=== PATIENT | female | born 1950 | race Caucasian/White ===

== ENCOUNTER 2024-09-22 17:47 | Observation (INO) | payer MEDICARE, SELFPAY ==
--- NOTE | 2024-09-22 12:49 | ED.GENMED ---
ED Provider Triage
<Maya Fisher NP - Last Filed: 09/22/24 12:56>
-
Patient seen by provider in Triage?: Seen in Triage
Attestation: A medical screening examination has been initiated by a qualified medical provider. Based on the assessment performed at this time, it has been determined that an emergent medical condition may exist and the patient has been informed
that further medical evaluation and possible additional diagnostic testing may be needed.
HPI: 74-year-old female with history of essential tremors, PFO, from [facility] presents with her 's caregiver who states she called last night, there was no answer, they found her naked on the ground in the in the
bathroom. Typically is normal mental status, caregiver saw her last week and she was 'fine.' She is confused now, unsure how long she was laying on the floor, mucous membranes are very dry. She denies pain anywhere. Denies CP, SOB, abdominal
pain.
Patient states she heard the phone ring but she could not get to the phone because 'I could not stand up,'
GENERAL: Alert , in no apparent distress
EYE: No visual abnormalities.
NECK: Trachea midline
ENT: No visible abnormalities.
LUNGS: No acute respiratory distress
NEUROLOGICAL: Alert and oriented
SKIN: Skin intact. No visible changes.
MUSCULOSKELETAL: Moving extremities normally
PSYCH: Normal and appropriate interaction.
This is a medical evaluation conducted in person to initiate diagnostic evaluation and provide initial therapeutics. Please see further documentation by the treating clinician.
History of Present Illness
<Maya Fisher NP - Last Filed: 09/22/24 12:56>
General
Chief Complaint: Weakness
Time Seen by Provider: 09/22/24 14:54
<Leonid Donahue MD - Last Filed: 09/22/24 19:47>
General
Source: patient
Exam Limitations: none
Nursing documentation reviewed up to this point in time: agreed with
History of Present Illness
History of Present Illness:
Patient presents to ED from [facility], where she was found to be lying in her room, naked, by staff member this morning. Patient upon arrival states that she feels very dehydrated and has had lack of appetite over the past 2 days, and has been
feeling really weak. Patient states that she was unable to climb onto her bed last night, secondary to generalized weakness. Denies headache. Denies neck pain. Denies blurred vision. Denies loss of sensation or weakness. Denies difficulty with
speech. Patient feels very thirsty.
Review of Systems
<Leonid Donahue MD - Last Filed: 09/22/24 19:47>
Review of Systems
Allergies reviewed?: Yes
All Other Systems: ROS reviewed and negative except as documented in HPI and ROS
Constitutional: Reports no symptoms
EENT: Reports no symptoms
Respiratory: Reports no symptoms
Cardiac: Reports no symptoms
ABD/GI: Reports no symptoms
Musculoskeletal: Reports no symptoms
Skin: Reports no symptoms
Neurological: Reports weakness; Denies dizzy or headache
Phy Exam
<Leonid Donahue MD - Last Filed: 09/22/24 19:47>
Physical Exam
Physical Exam:
Physical Exam
General: mild distress, not acutely ill. afebrile. weak appearing
Head: nc/at. eomi
Neck: supple. normal range of motion.
Heart: s1/s2 regular rate and rhythm, no murmur.
Lungs: no acute respiratory distress. clear bilaterally
Abdomen: normal bowel sounds. not tender.
Neuro: alert and oriented x 3. no focal neurological deficits
Skin: no rash. dry mucosa noted
Psychiatric: well kept. interactive and cooperative
Extremities: no edema. no calf tenderness.
Course
<Maya Fisher SPD TECH - Last Filed: 09/22/24 12:56>
Orders/Labs/Results
Orders:
Orders
09/22/24 12:53
0.9% Sodium Chloride 1000 ml [Nss] 1,000 ml IV BOLUS
09/22/24 12:55
Urinalysis Reflex To Culture Urgent
09/22/24 13:08
CPK [Creatine Phosphokinase] Urgent
Complete Blood Count/With Diff Urgent
Comprehensive Metabolic Panel Urgent
09/22/24 Dinner
Regular
At Your Request: Full Participation
Does patient need a safe tray?: No
09/22/24 15:18
CT Head W/o Iv Contrast Urgent
Comment:
Reason For Exam: mental status change with fall
09/22/24 15:22
COVID-19 Antigen Urgent
Source: Nasal Swab
Influenza A+B Rapid Molecular Urgent
JACKLYN Source: Nasal Swab
Specimen Description:
09/22/24 17:38
Admit/Transfer Patient As Directed
Co-Sign Provider:
Level of Care: Observation services
Assign to:: Medical/Surgical
Physician / Group: kwasi
Diagnosis: covid, rhabdo
09/22/24 17:39
Code Status As Directed
Resuscitation Status: Full Code
PRN Pain Medication Management As Directed
May give lesser potent ordered pain med per pt: Yes
preference::
Protocol:: Medication orders for pain may be administered in a
manner that supports deferring to patient preference
when the pt is:
- Requesting an ordered lesser potent pain medication.
Least to most potent pain medications are defined
as: acetaminophen < NSAID < tramadol < opioids
(morphine, oxycodone, hydromorphone).
- Requesting a lesser dose of the same medication IF
ORDERED.
- Requesting a less intrusive route of administration
if both routes are prescribed by the provider (PO <
IV).
09/22/24 17:44
Potassium Chloride [KCl] 40 meq PO NOW STA
09/22/24 17:51
Acetaminophen [Tylenol] 650 mg PO Q4HPRN PRN
09/22/24 17:51
Activity As Directed
Activity Level: As Tolerated
Vital Signs As Directed
Frequency: Per unit guidelines
Ot Eval And Treat Routine
Pt Eval And Treat Routine
Activity Level: As Tolerated
DX Deep Vein Thrombosis Video Routine
09/22/24 18:00
omega-3 fatty acids 1,000 mg PO 5/D
09/22/24 20:00
Heparin 5,000 units SC Q12
Propranolol [Inderal] 20 mg PO BID
09/22/24 22:00
Melatonin 10 mg PO HS
09/23/24 06:00
Complete Blood Count/With Diff IN AM
Comprehensive Metabolic Panel IN AM
09/23/24 08:00
Ascorbic Acid [Vitamin C] 500 mg PO DAILY
Calcium Polycarbophil [Fibercon] 625 mg PO DAILY
Multivitamin [Theragran] 1 tablet PO DAILY
vibegron [Gemtesa] 75 mg PO DAILY
Abnormal Lab Results
09/22/24 09/22/24
13:08 15:22
MCV 74.4 L fL
(81.0-99.0)
MCH 24.5 L pg
(27.0-31.0)
MCHC 32.9 L g/dL
(33.0-37.0)
RDW 15.4 H %
(11.5-14.5)
MPV 10.8 H fL
(7.4-10.4)
Absolute Lymphs (auto) 0.5 L 10^3/uL
(1.2-3.4)
Absolute Monos (auto) 0.8 H 10^3/uL
(0.1-0.6)
Neutrophils % 81.7 H %
(42.2-75.2)
Lymphocytes % 6.6 L %
(20.5-51.1)
Monocytes % 11.2 H %
(1.7-9.3)
Potassium 3.4 L mmol/L
(3.5-5.1)
Chloride 97 L mmol/L
(98-107)
Carbon Dioxide 32 H mmol/L
(22-30)
BUN 20 H mg/dl
(7-17)
Glucose 110 H mg/dl
(70-99)
AST 52 H U/L
(14-36)
Creatine Kinase 966 H U/L
(30-135)
SARS-CoV-2 Antigen Positive A
(Negative)
09/22/24 13:08
09/22/24 13:08
Vital Signs
Initial and Last Documented VS:
Initial Vital Signs
Temp Pulse Resp BP Pulse Ox
97.9 F 85 17 133/86 98
09/22/24 12:50 09/22/24 12:50 09/22/24 12:50 09/22/24 12:50 09/22/24 12:50
Last Documented Vital Signs
Temp Pulse Resp BP Pulse Ox
99.3 F 79 22 154/81 97
09/22/24 17:52 09/22/24 17:52 09/22/24 17:52 09/22/24 17:52 09/22/24 17:57
<Leonid Donahue MD - Last Filed: 09/22/24 19:47>
Orders/Labs/Results
Orders:
Orders
09/22/24 12:53
0.9% Sodium Chloride 1000 ml [Nss] 1,000 ml IV BOLUS
09/22/24 12:55
Urinalysis Reflex To Culture Urgent
09/22/24 13:08
CPK [Creatine Phosphokinase] Urgent
Complete Blood Count/With Diff Urgent
Comprehensive Metabolic Panel Urgent
09/22/24 Dinner
Regular
At Your Request: Full Participation
Does patient need a safe tray?: No
09/22/24 15:18
CT Head W/o Iv Contrast Urgent
Comment:
Reason For Exam: mental status change with fall
09/22/24 15:22
COVID-19 Antigen Urgent
Source: Nasal Swab
Influenza A+B Rapid Molecular Urgent
JACKLYN Source: Nasal Swab
Specimen Description:
09/22/24 17:38
Admit/Transfer Patient As Directed
Co-Sign Provider:
Level of Care: Observation services
Assign to:: Medical/Surgical
Physician / Group: kwasi
Diagnosis: covid, rhabdo
09/22/24 17:39
Code Status As Directed
Resuscitation Status: Full Code
PRN Pain Medication Management As Directed
May give lesser potent ordered pain med per pt: Yes
preference::
Protocol:: Medication orders for pain may be administered in a
manner that supports deferring to patient preference
when the pt is:
- Requesting an ordered lesser potent pain medication.
Least to most potent pain medications are defined
as: acetaminophen < NSAID < tramadol < opioids
(morphine, oxycodone, hydromorphone).
- Requesting a lesser dose of the same medication IF
ORDERED.
- Requesting a less intrusive route of administration
if both routes are prescribed by the provider (PO <
IV).
09/22/24 17:44
Potassium Chloride [KCl] 40 meq PO NOW STA
09/22/24 17:51
Acetaminophen [Tylenol] 650 mg PO Q4HPRN PRN
09/22/24 17:51
Activity As Directed
Activity Level: As Tolerated
Vital Signs As Directed
Frequency: Per unit guidelines
Ot Eval And Treat Routine
Pt Eval And Treat Routine
Activity Level: As Tolerated
DX Deep Vein Thrombosis Video Routine
09/22/24 18:00
omega-3 fatty acids 1,000 mg PO 5/D
09/22/24 20:00
Heparin 5,000 units SC Q12
Propranolol [Inderal] 20 mg PO BID
09/22/24 22:00
Melatonin 10 mg PO HS
09/23/24 06:00
Complete Blood Count/With Diff IN AM
Comprehensive Metabolic Panel IN AM
09/23/24 08:00
Ascorbic Acid [Vitamin C] 500 mg PO DAILY
Calcium Polycarbophil [Fibercon] 625 mg PO DAILY
Multivitamin [Theragran] 1 tablet PO DAILY
vibegron [Gemtesa] 75 mg PO DAILY
Abnormal Lab Results
09/22/24 09/22/24
13:08 15:22
MCV 74.4 L fL
(81.0-99.0)
MCH 24.5 L pg
(27.0-31.0)
MCHC 32.9 L g/dL
(33.0-37.0)
RDW 15.4 H %
(11.5-14.5)
MPV 10.8 H fL
(7.4-10.4)
Absolute Lymphs (auto) 0.5 L 10^3/uL
(1.2-3.4)
Absolute Monos (auto) 0.8 H 10^3/uL
(0.1-0.6)
Neutrophils % 81.7 H %
(42.2-75.2)
Lymphocytes % 6.6 L %
(20.5-51.1)
Monocytes % 11.2 H %
(1.7-9.3)
Potassium 3.4 L mmol/L
(3.5-5.1)
Chloride 97 L mmol/L
(98-107)
Carbon Dioxide 32 H mmol/L
(22-30)
BUN 20 H mg/dl
(7-17)
Glucose 110 H mg/dl
(70-99)
AST 52 H U/L
(14-36)
Creatine Kinase 966 H U/L
(30-135)
SARS-CoV-2 Antigen Positive A
(Negative)
09/22/24 13:08
09/22/24 13:08
Vital Signs
Initial and Last Documented VS:
Initial Vital Signs
Temp Pulse Resp BP Pulse Ox
97.9 F 85 17 133/86 98
09/22/24 12:50 09/22/24 12:50 09/22/24 12:50 09/22/24 12:50 09/22/24 12:50
Last Documented Vital Signs
Temp Pulse Resp BP Pulse Ox
99.3 F 79 22 154/81 97
09/22/24 17:52 09/22/24 17:52 09/22/24 17:52 09/22/24 17:52 09/22/24 17:57
<Leonid Donahue MD - Last Filed: 09/22/24 19:47>
MDM/Problems Addressed
MDM/Problems Addressed:
Patient required significant support, when ambulating to restroom via wheelchair. History and exam consistent with likely significant dehydration from current COVID-19 infection. Patient will be admitted for continued IV hydration and evaluation.
<Leonid Donahue MD - Last Filed: 09/22/24 19:47>
*Critical Care Note
Total Time (30-74mins, 75-104mins- exclusive of procedures): Not Applicable
ED Attending Note
<Maya Fisher NP - Last Filed: 09/22/24 12:56>
-
Portions of this chart may have been created with voice recognition software.� Occasional wrong word or��sound alike� substitutions may have occurred due to the inherent limitations of voice recognition software.
Discharge Plan
Departure
Patient Disposition: Admit
Date of Disposition: 09/22/24
Time of Disposition: 16:55
Admit to: Telemetry
Presentation/result/management discussed w/ accepting MD/DO: Hospitalist
Discharge Problem:
COVID-19, Dehydration, Generalized weakness
Interventions
Interventions:
*Risk Screen - Suicide Last Done: 09/22/24 12:55
*General Assessment Last Done: 09/22/24 14:26
*Neglect/Abuse Screening Last Done: 09/22/24 14:34
*ED COVID-19 Vaccine History Last Done: 09/22/24 14:26
ED- Cardiac Assessment Last Done: 09/22/24 14:27
ED- Neurological Assessment Last Done: 09/22/24 14:27
ED- Pulmonary Assessment Last Done: 09/22/24 14:27
[2024-09-22 12:50] VITALS: BP 133/86
[2024-09-22 13:25] LABS: % Basophils 0.1 % (0-2); % Immature Granulocytes 0.4 % (0-0.5); % Lymphocytes 6.6 % (20.5-51.1); % Monocytes 11.2 % (1.7-9.3); % Neutrophils 81.7 % (42.2-75.2); Absolute Lymphocytes 0.5 10^3/uL (1.2-3.4); Absolute Monocytes 0.8 10^3/uL (0.1-0.6); Absolute Neutrophils 5.6 10^3/uL (1.4-6.5); Hematocrit 39.8 % (37.0-47.0); Hemoglobin 13.1 g/dL (12.0-16.0); Mean Corp Hgb Conc. 32.9 g/dL (33.0-37.0); Mean Corpuscular Hgb 24.5 pg (27.0-31.0); Mean Corpuscular Volume 74.4 fL (81.0-99.0); Mean Platelet Volume 10.8 fL (7.4-10.4); Nucleated Red Blood Cells % 0 %; Platelet Count 185 10^3/uL (130-400); Red Blood Cell Count 5.35 10^6/uL (4.20-5.40); Red Cell Dist. Width 15.4 % (11.5-14.5); White Blood Cell Count 6.8 10^3/uL (4.8-10.8)
[2024-09-22 13:42] LABS: ALT (SGPT) 27 U/L (0-35); AST (SGOT) 52 U/L (14-36); Albumin 4.7 g/dl (3.5-5.0); Alkaline Phosphatase 49 U/L (38-126); Blood Urea Nitrogen 20 mg/dl (7-17); Calcium 9.4 mg/dl (8.4-10.2); Carbon Dioxide 32 mmol/L (22-30); Chloride 97 mmol/L (98-107); Creatine Phosphokinase 966 U/L (30-135); Glucose 110 mg/dl (70-99); Potassium 3.4 mmol/L (3.5-5.1); Sodium 138 mmol/L (135-145); Total Bilirubin 0.4 mg/dl (0.2-1.3); Total Protein 7.5 g/dl (6.3-8.2); eGFR > 60.00
[2024-09-22 13:51] VITALS: BP 123/59
[2024-09-22] MEDS: NSS 1000 IV (14:32)
[2024-09-22 15:45] LABS: COVID-19 Antigen Positive (Negative)
[2024-09-22 16:33] VITALS: BP 162/83
--- NOTE | 2024-09-22 17:43 | HPS.HSE ---
Family Physician
-
Family Physician: MARLA Maldonado
Chief Complaint
-
weakness
History of Present Illness
74-year-old female past medical history of essential tremors, PFO, presenting from [facility] with her 's caregiver who states that last night there was no answer and they found her naked on the ground in the bathroom. Typically no mental
status she was fine for the past week. He is confused now unclear how long she was lying on the floor. Mucous membranes dry. No chest pain or shortness of breath abdominal pain. Patient could not get to the phone because she could not stand up.
She has some sniffles and her throat is dry. Denies cough. Denies shortness of breath. Denies fevers or chills. Denies nausea vomiting or diarrhea.
She lives in independent living and [facility].
Denies smoking or alcohol use
Medical History
Past Medical History
Past Medical History: Reports Other (essential tremors, PFO)
Past Surgical History: Reports None
Social History
Tobacco: Non-smoker
Alcohol: None
Drug: None
Family History
Family History: Not pertinent
Allergies / Home Medications
Allergies reflects when Allergies were last updated in [employer].
Home Medications with original date entered in [employer]
Allergy/Medication List:
Allergies
Allergy/AdvReac Type Severity Reaction Status Date / Time
No Known Allergies Allergy Unverified 09/22/24 12:53
Home Medications
Thyroen 1 cap PO DAILY 09/22/24
ascorbate calcium (vitamin C) 814 mg/gram oral powder (Vitamin C (ascorbate calcium)) 0 mg PO DAILY 09/22/24
calcium polycarbophil 625 mg tablet (FiberCon) 625 mg PO DAILY 09/22/24
melatonin 10 mg tablet 10 mg PO HS 09/22/24
multivitamin with mineral-herbal no.315 capsule (Adrenal Viscose Cellar Charge Hand capsule) 1 cap PO DAILY 09/22/24
omega-3 fatty acids 1,000 mg PO 5/D 09/22/24
prasterone (dhea) 25 mg capsule 25 mg PO DAILY 09/22/24
propranolol 10 mg tablet 20 mg PO BID 09/22/24
therapeutic multivitamin 1 tab PO DAILY 09/22/24
vibegron 75 mg tablet (Gemtesa) 75 mg PO DAILY 09/22/24
Review of Systems
-
History Source: Patient
A 12 point ROS was completed and negative except as noted: Yes
Constitutional: Reports No Symptoms
EENT: Reports No Symptoms
Respiratory: Reports No Symptoms
Cardiac: Reports No Symptoms
Abdomen/GI: Reports No Symptoms
: Reports No Symptoms
Musculoskeletal: Reports No Symptoms
Skin: Reports No Symptoms
Neurological: Reports No Symptoms
Endocrine: Reports No Symptoms
Hematologic/Lymphatic: Reports No Symptoms
Psych: Reports No Symptoms
Physical Exam
Vital Signs
Vital Signs
Temp Pulse Resp BP Pulse Ox
97.9 F 88 16 162/83 98
09/22/24 12:50 09/22/24 16:33 09/22/24 16:33 09/22/24 16:33 09/22/24 16:33
Physical Exam
General: Well Developed, Well Nourished and No Apparent Distress
HEENT: NormoCephalic, Moist mucous membranes and Atraumatic
Respiratory: Clear
Cardiac: S1/S2 and Regular Rhythm; No Murmur or Rub
GI: Soft, Non Tender, Non Distended and Normal Bowel Sounds; No Organomegaly
Rectal: Deferred by Provider
Musculoskeletal: No Clubbing, No Cyanosis and No Edema
Skin: No Rash
Neuro: Nonfocal/grossly intact
Laboratory Results
-
09/22/24 13:08
09/22/24 13:08
Laboratory Results
Total Bilirubin 0.4 mg/dl (0.2-1.3) 09/22/24 13:08
AST 52 U/L (14-36) H 09/22/24 13:08
ALT 27 U/L (0-35) 09/22/24 13:08
Alkaline Phosphatase 49 U/L (38-126) 09/22/24 13:08
Data Reviewed
-
Lab Data: Labs Reviewed by me
Old Records: Reviewed
Impression/Plan
-
IMPRESSION:
PLAN:
# Ambulatory dysfunction/weakness secondary to COVID infection
-Patient not short of breath or hypoxic
-No treatment
# Mild rhabdo
-Creatinine kinase of 960
-IV fluids
# Hypokalemia
-Replete potassium
Essential tremor
PFO
Full code
DVT prophylaxis�heparin
DNR/DNI
[2024-09-22 17:52] VITALS: BP 154/81
[2024-09-22] MEDS: KCL 40 MEQ PO (18:04)
[2024-09-22 22:42] VITALS: BP 145/89
[2024-09-22 22:43] VITALS: BMI 19.8
[2024-09-23 00:14] LABS: Glucose - Point of Care 113 mg/dl (70-99)
[2024-09-23] MEDS: INDERAL 20 MG PO ×3 (02:22→21:01)
[2024-09-23] MEDS: HEPARIN 5000 UNITS SC ×3 (02:22→21:02)
--- NOTE | 2024-09-23 04:50 | PTCARENOTE ---
Pt transported from ED via stretcher. She was awake, oriented x3. Pt was agitated and anxious about her 's care, but cooperative with care. Pt oriented to room. Callbell within reach.
[2024-09-23 07:25] LABS: % Basophils 0.4 % (0-2); % Immature Granulocytes 0.4 % (0-0.5); % Lymphocytes 21.6 % (20.5-51.1); % Monocytes 12.8 % (1.7-9.3); % Neutrophils 64.8 % (42.2-75.2); Absolute Monocytes 0.6 10^3/uL (0.1-0.6); Absolute Neutrophils 2.9 10^3/uL (1.4-6.5); Hematocrit 35.7 % (37.0-47.0); Hemoglobin 11.7 g/dL (12.0-16.0); Mean Corp Hgb Conc. 32.8 g/dL (33.0-37.0); Mean Corpuscular Hgb 24.2 pg (27.0-31.0); Mean Corpuscular Volume 73.8 fL (81.0-99.0); Mean Platelet Volume 10.1 fL (7.4-10.4); Nucleated Red Blood Cells % 0 %; Platelet Count 153 10^3/uL (130-400); Red Blood Cell Count 4.84 10^6/uL (4.20-5.40); Red Cell Dist. Width 15.3 % (11.5-14.5); White Blood Cell Count 4.5 10^3/uL (4.8-10.8)
[2024-09-23 07:30] VITALS: BP 133/75
[2024-09-23 07:42] LABS: ALT (SGPT) 26 U/L (0-35); AST (SGOT) 51 U/L (14-36); Albumin 3.7 g/dl (3.5-5.0); Alkaline Phosphatase 45 U/L (38-126); Blood Urea Nitrogen 21 mg/dl (7-17); Calcium 8.8 mg/dl (8.4-10.2); Carbon Dioxide 27 mmol/L (22-30); Chloride 101 mmol/L (98-107); Estimated Creatinine Clearance 68 ml/min; Glucose 96 mg/dl (70-99); Potassium 3.7 mmol/L (3.5-5.1); Sodium 137 mmol/L (135-145); Total Bilirubin 0.2 mg/dl (0.2-1.3); Total Protein 6.4 g/dl (6.3-8.2); eGFR > 60.00
[2024-09-23] MEDS: VITAMIN C 500 MG PO (08:53)
[2024-09-23] MEDS: FIBERCON 625 MG PO (08:53)
[2024-09-23] MEDS: NSS 500 IV (08:57)
[2024-09-23] MEDS: THERAGRAN 1 TABLET PO (08:57)
--- NOTE | 2024-09-23 10:25 | CM ---
Reviewed the chart notes and spoke with the patient. Patient admitted under observational status. NIYA provided and explained. The patient had no questions with regards to the letter.
The patient resides with her spouse in independent living at [facility]. Patient reports no DME/VN/SNF in the past. 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 She has an aide for him for four hours on Tuesdays. Spouse goes to [facility]
care facility Saturday and Saturday. The patient confirmed her pharmacy of choice is the [facility]. The patient anticipates being discharged to home with no additional needs. CM continues to be available to patient/family and is
monitoring medical plan for needs at discharge.
Plan: Discharge to home when medically stable. No needs anticipated at this time.
--- NOTE | 2024-09-23 11:16 | W.PN.HOSP.TC ---
Today's Communication/Plan
-
repeat CPK
PT/OT
IVF 500cc additional
plan for tentative dc later today or tomm
Assessment / Plan
Assessment / Plan
General: cachetic, and No Apparent Distress, sitting in chair, watching tv
HEENT: NormoCephalic, Moist mucous membranes and Atraumatic
Respiratory: Clear
Cardiac: S1/S2 and Regular Rhythm;
GI: Soft, Non Tender, Non Distended and Normal Bowel Sounds; No Organomegaly
Rectal: Deferred by Provider
Musculoskeletal: No Clubbing, No Cyanosis and No Edema
Skin: No Rash
Neuro: Nonfocal/grossly intact
# Ambulatory dysfunction/weakness secondary to COVID infection
-Patient not short of breath or hypoxic
-No treatment
-Symptomatic management. Tylenol as needed.
# Mild rhabdo
-Creatinine kinase of 960
-IV fluids and encourage increased p.o. intake which patient is doing. Can DC fluids after additional 500 cc.
#Severe dehydration
-Status post IV fluids and now tolerating p.o. intake.
# Hypokalemia
-Replete potassium
Essential tremor
Underweight
PFO
Full code
DVT prophylaxis�heparin
PT/OT
Anticipated Discharge: Within 24 hours
Subjective/Interval History
-
Date of Service: September 23, 2024
states of feeling hot at times
states feeling alot better compared to yesterday
tolerating diet
Objective Data
-
Labs:
Laboratory Results
09/23/24
05:56
WBC 4.5 L
Hgb 11.7 L
Hct 35.7 L
Plt Count 153
Sodium 137
Potassium 3.7
Chloride 101
Carbon Dioxide 27
BUN 21 H
Creatinine 0.6
Glucose 96
Calcium 8.8
Total Bilirubin 0.2
AST 51 H
ALT 26
Alkaline Phosphatase 45
Vital Signs:
Vital Signs
Temp Pulse Resp BP Pulse Ox
98.8 F 68 14 133/75 94
09/23/24 07:30 09/23/24 08:54 09/23/24 07:30 09/23/24 08:54 09/23/24 09:07
I&O
09/22/24 09/23/24 09/24/24
06:59 06:59 06:59
Intake Total 240 / 240
Balance 240 / 240
Data Reviewed
-
Total Time Spent with Patient (in minutes): 55
[2024-09-23 14:19] LABS: Creatine Phosphokinase 957 U/L (30-135)
[2024-09-23 15:00] VITALS: BP 94/55
[2024-09-23] MEDS: TESSALON PERLES 200 MG PO (17:39)
[2024-09-23 17:56] VITALS: BP 104/61
--- NOTE | 2024-09-23 18:50 | PTCARENOTE ---
Patient AAOX3, ringing appropriately, x1 assist to ambulate in room/OOB to chair throughout shift, c/o generalized weakness, PT/OT following. PRN tomeka almonte ordered per MD for patient c/o moist nonproductive cough, patient denies any SOB,
states no other concerns at this time.
[2024-09-23] MEDS: DEBROX EAR DROPS 1 DROP OTIC (21:02)
[2024-09-23 23:36] VITALS: BP 128/74
[2024-09-24 07:48] VITALS: BP 128/78
[2024-09-24] MEDS: HEPARIN 5000 UNITS SC (09:34)
[2024-09-24] MEDS: FIBERCON 625 MG PO (09:42)
[2024-09-24] MEDS: VITAMIN C 500 MG PO (09:42)
[2024-09-24] MEDS: INDERAL 20 MG PO (09:42)
[2024-09-24] MEDS: THERAGRAN 1 TABLET PO (09:42)
[2024-09-24] MEDS: DEBROX EAR DROPS 1 DROP OTIC (09:43)
--- NOTE | 2024-09-24 09:57 | CM ---
PT rec SNF- Patient declines SNF
OBS status
agreeable to VN - options given
[facility] preferred - notified liaison Chanell & referral placed in careport
States Cheryl 's aide would transport [phone]
PLAN: home with [facility], when medically stable
Cheryl to transport.
--- NOTE | 2024-09-24 10:15 | VNURNOTE ---
Home Health Liaison spoke with patient to discuss [facility] nurse/therapy, visits, schedule and homebound status. Patient is agreeable and understands that visits at home will be 2-3 x per week to assess and teach medical management. Reviewed in depth
homebound requirements per insurance. 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 Patient verbalized understanding. Patient is aware that [facility] will contact them for start of care in 1-2 days after discharge
from . [facility] referral completed in [facility].
--- NOTE | 2024-09-24 10:53 | W.PN.HOSP.TC ---
Today's Communication/Plan
-
home health
encourage po intake
Assessment / Plan
Assessment / Plan
General: cachetic, and No Apparent Distress, was talking on phone
HEENT: NormoCephalic, Moist mucous membranes and Atraumatic
Respiratory: Clear
Cardiac: S1/S2 and Regular Rhythm;
GI: Soft, Non Tender, Non Distended and Normal Bowel Sounds; No Organomegaly
Rectal: Deferred by Provider
Musculoskeletal: No Clubbing, No Cyanosis and No Edema
Skin: No Rash
Neuro: Nonfocal/grossly intact
# Ambulatory dysfunction/weakness secondary to COVID infection
-Patient not short of breath or hypoxic
-No treatment
-Symptomatic management. Tylenol as needed.
# Mild rhabdo
-Status post aggressive IV fluid. Encourage increase p.o. intake.
#Severe dehydration
-Status post IV fluids and now tolerating p.o. intake.
# Hypokalemia
-Replete potassium
Essential tremor
Underweight
PFO
Full code
DVT prophylaxis�heparin
PT/OT recs SNF patient refused. Wants home VN. Case management aware.
More than 30 minutes spent in discharge including
Final examination of the patient
Summarizing hospital stay
Instructions for continuing care to all relevant caregivers
Preparation of discharge records, prescriptions, and referral forms
Total time spent (in minutes): 50
Anticipated Discharge: Today
Subjective/Interval History
-
Date of Service: September 24, 2024
States significant improvement in appetite and complete entire breakfast tray.
Afebrile and on room air
Objective Data
-
Vital Signs:
Vital Signs
Temp Pulse Resp BP Pulse Ox
98.8 F 67 16 128/78 96
09/24/24 07:48 09/24/24 09:42 09/24/24 07:48 09/24/24 09:42 09/24/24 07:48
I&O
09/23/24 09/24/24 09/25/24
06:59 06:59 06:59
Intake Total 240 / 240 960 / 960
Balance 240 / 240 960 / 960
--- NOTE | 2024-09-24 10:56 | W.DCSUMMARY ---
Discharge Summary
Discharge Data
Date of Admission: 09/22/24
Date of Discharge: 09/24/24
-
Pending Results: No
Hospital Course
74-year-old female past medical history of tremors, PFO is presenting with weakness and ambulatory dysfunction. Patient was found to have COVID 19 positive infection. Patient was found to be severely dehydrated. Patient received aggressive IV
fluid resuscitation. Patient felt significantly better with fluid resuscitation. Patient appetite is significantly improved. Patient was afebrile. Patient was on room air. Patient was eval by physical and Occupational Therapy who recommended
alf facility which patient refused. Home visiting nurses patient accepted. Patient be discharged back to previous living situation.
Discharge Plan
-
Patient Disposition: Home with Home Care
Discharge Diagnosis/Procedures: Ambulatory dysfunction/weakness secondary to COVID infection
Severe dehydration
Hypokalemia
Condition: Fair
Diet: As tolerated
Activity: With assistance and As tolerated
Driving Restrictions: As prior to admission
Referrals:
Awa Faulkner CRNP [Family Provider] - in less than 1 week
Prescriptions:
New
benzonatate 100 mg Capsule
100 mg PO TIDPRN PRN (Reason: severe cough) Qty: 20 0RF
Continued
Gemtesa 75 mg Tablet
75 mg PO DAILY
propranolol 10 mg Tablet
20 mg PO BID
prasterone (dhea) 25 mg Capsule
25 mg PO DAILY
therapeutic multivitamin Tablet
1 tab PO DAILY
calcium polycarbophil [FiberCon] 625 mg Tablet
625 mg PO DAILY
omega-3 fatty acids Capsule
1,000 mg PO 5/D
Vitamin C (ascorbate calcium) 814 mg/gram Powder
0 mg PO DAILY
Rx Instructions:
1 tsp po daily
melatonin 10 mg Tablet
10 mg PO HS
Adrenal Grease Cup Filler Capsule
1 cap PO DAILY
Thyroen
1 cap PO DAILY
Discharge Orders:
Discharge Patient (As Directed); Ordered 09/24/24
Ordered By: Michael Barkley
Discharge Date and Time
Print Language: DANISH
[2024-09-24 11:30] VITALS: BP 118/85
== END 2024-09-24 13:41 | disposition home health service (06) ==
LOC: 2 NORTH 17:47
PROVIDERS: Registered Nurse; ADMITTING PHYSICIAN Hospitalist; ATTENDING PHYSICIAN Hospitalist; EMERGENCY PHYSICIAN Emergency Medicine; FAMILY PHYSICIAN Nurse Practitioner
DX: U07.1 COVID-19 (principal); R53.1 Weakness; G25.0 Essential tremor; Q21.12 Patent foramen ovale; E86.0 Dehydration; R63.0 Anorexia; R63.6 Underweight; M62.82 Rhabdomyolysis; R64 Cachexia; R41.82 Altered mental status, unspecified; R26.2 Difficulty in walking, not elsewhere classified; E87.6 Hypokalemia; Z66 Do not resuscitate; Z68.1 Body mass index [BMI] 19.9 or less, adult
CPT/HCPCS: 70450; 80053; 82550; 82962; 85025; 87502; 87811; 96360; 97162; 97166; 99285; G0378